=== PATIENT | male | born 1945 | race Two or more races ===

== ENCOUNTER 2024-06-08 06:35 | Day surgery (SDC) | payer OTHER ==
[2024-06-02 12:01] VITALS: BP 135/83
[~2024-06-08] VITALS: Ht 160 cm; Wt 57.6 kg
[~2024-06-08 06:35] MED LIST: NAMENDA XR7 MG; PROAIR RESPICL90 MCG IH; REMINYL4 MG
[2024-06-08] MEDS ORDERED: CEFAZOLIN SODIUM 1,000 MG VIAL ONE (10:26)
[2024-06-08] MEDS ORDERED: KETOROLAC TROMETHAMINE 30 MG VIAL ONE (10:36)
[2024-06-08] MEDS ORDERED: TYLENOL ARTHRI650 MG PO (10:51)
[2024-06-08] MEDS ORDERED: MIRALAX17 GM PO (10:51)
[2024-06-08] MEDS ORDERED: TRAMADOL HCL50 MG PO (10:51)
[2024-06-08] MEDS ORDERED: KETO10TA2 PO (10:51)
[2024-06-08] MEDS ORDERED: MORPHINE SULFATE 2 MG/ML CARTRIDGE IV ONE (13:35)
== END 2024-06-08 16:05 | disposition home or self-care (01) ==
LOC: CIR.AMB 06:35
PROVIDERS: ATTEND Surgery
DX: K40.90 Unilateral inguinal hernia, without obstruction or gangrene, not specified as recurrent (principal); K42.0 Umbilical hernia with obstruction, without gangrene; Z91.013 Allergy to seafood; J45.909 Unspecified asthma, uncomplicated
CPT/HCPCS: 49650; 49592; C1781